=== PATIENT | female | born 1995 | race Asian ===

== ENCOUNTER 2017-12-12 21:16 | Emergency (ER) | payer OTHER ==
[2017-12-12] MEDS ORDERED: Ibuprofen TAB* 800 MG PO ONE (21:50)
[2017-12-12] MEDS ORDERED: oxyCODONE/Acetamin 5/325 MG* TAB PO ONE (21:51)
--- NOTE | 2017-12-12 21:55 | ED ---
Back Pain - HPI Summary HPI Summary: This patient is a 22 year old F presenting to [facility] with a chief complaint of lumbar back pain since 21:00. Pain started when she slipped and fell down 4 stairs. The patient rates the pain 6/10 in severity. Patient reports feeling dizzy immediately following the fall. She is unsure of head trauma. - History of Current Complaint Chief Complaint: EDBackInjuryPain Stated Complaint: FALL/BACK INJURY Time Seen by Provider: 12/12/17 21:40 Hx Obtained From: Patient Onset/Duration: Sudden Onset, Lasting Hours - 21:00 today Onset/Duration: Traumatic - After falling down 4 stairs, Still Present Timing: Constant, Lasting Hours - Since 21:00 today Severity Initially: Moderate Severity Currently: Moderate Pain Intensity: 6 Pain Scale Used: 0-10 Numeric Associated Signs And Symptoms: Positive: Other - Dizziness immediately following the fall - Allergies/Home Medications Allergies/Adverse Reactions: Allergies Allergy/AdvReac Type Severity Reaction Status Date / Time No Known Allergies Allergy Verified 12/12/17 21:23 PMH/Surg Hx/FS Hx/Imm Hx Endocrine/Hematology History: Denies: Hx Diabetes Respiratory History: Denies: Hx Asthma - Immunization History Date of Tetanus Vaccine: utd Date of Influenza Vaccine: unk Infectious Disease History: No Infectious Disease History: Denies: Traveled Outside the [place] in Last 30 Days - Family History Known Family History: Negative: Cardiac Disease, Diabetes - Social History Occupation: Student Alcohol Use: None Substance Use Type: Reports: None Smoking Status (MU): Never Smoked Tobacco Review of Systems Positive: Other - Lumbar back pain Neurological: Other - Dizziness immediately following the fall All Other Systems Reviewed And Are Negative: Yes Physical Exam - Summary Physical Exam Summary: VITAL SIGNS: Reviewed. GENERAL: Patient is a well-developed and nourished FEMALE who is lying comfortable in the stretcher. Patient is not in any acute respiratory distress. HEAD AND FACE: No signs of trauma. No ecchymosis, hematomas or skull depressions. No sinus tenderness. EYES: PERRLA, EOMI x 2, No injected conjunctiva, no nystagmus. EARS: Hearing grossly intact. Ear canals and tympanic membranes are within normal limits. MOUTH: Oropharynx within normal limits. NECK: Supple, trachea is midline, no adenopathy, no JVD, no carotid bruit, no c- spine tenderness, neck with full ROM. CHEST: Symmetric, no tenderness at palpation LUNGS: Clear to auscultation bilaterally. No wheezing or crackles. CVS: Regular rate and rhythm, S1 and S2 present, no murmurs or gallops appreciated. ABDOMEN: Soft, non-tender. No signs of distention. No rebound no guarding, and no masses palpated. Bowel sounds are normal. EXTREMITIES: FROM in all major joints, no edema, no cyanosis or clubbing.' MUSCULOSKELETAL: Tenderness of lower back. NEURO: Alert and oriented x 3. No acute neurological deficits. Speech is normal and follows commands. SKIN: Dry and warm Triage Information Reviewed: Yes Vital Signs On Initial Exam: Initial Vitals Temp Pulse Resp BP Pulse Ox 98.6 F 66 16 105/60 99 12/12/17 21:19 12/12/17 21:19 12/12/17 21:19 12/12/17 21:19 12/12/17 21:19 Vital Signs Reviewed: Yes Diagnostics - Vital Signs Vital Signs Temp Pulse Resp BP Pulse Ox 12/12/17 21:19 98.6 F 66 16 105/60 99 - Laboratory Lab Statement: Any lab studies that have been ordered have been reviewed, and results considered in the medical decision making process. Back Pain Course/Dx - Course Course Of Treatment: This patient is a 22 year old F presenting to [facility] with a chief complaint of lumbar back pain since 21:00. Pain started when she slipped and fell down 4 stairs. The patient rates the pain 6/10 in severity. Patient reports feeling dizzy immediately following the fall. She is unsure of head trauma. Patient refused a lumbar spine CT. She said she will come back if the pain worsens or persists. - Diagnoses Provider Diagnoses: Lower back pain Discharge - Sign-Out/Discharge Documenting (check all that apply): Patient Departure - Discharge Plan Condition: Stable Disposition: HOME Patient Education Materials: Low Back Strain (ED) Referrals: [facility] [Outside] - 3 Days Additional Instructions: RETURN TO THE EMERGENCY DEPARTMENT FOR CHANGING OR WORSENING SYMPTOMS. FOLLOW UP WITH PCP IN 1-2 DAYS. - Attestation Statements Document Initiated by Scribe: Yes Documenting Scribe: Temo Smith Provider For Whom Scribe is Documenting (Include Credential): Alexis Galindo MD Scribe Attestation: Temo Bernal, scribed for Alexis Galindo MD on 12/12/17 at 2220.
[2017-12-12 22:29] VITALS: BP 108/73
== END 2017-12-12 22:28 | disposition home or self-care (01) ==
LOC: ED 21:16
DX: M54.5 Low back pain (principal); R42 Dizziness and giddiness; Z91.81 History of falling
CPT/HCPCS: 99282; A9270-GY